=== PATIENT | female | born 1970 | race Caucasian/White ===

== ENCOUNTER 2019-04-10 17:21 | Emergency (ER) | payer OTHER ==
[~2019-04-10] VITALS: Ht 157.5 cm; Wt 77.1 kg
[2019-04-10 17:30] VITALS: BP 107/68
[2019-04-10] MEDS ORDERED: NACL 0.9% 1,000 ML IV ONE (19:05)
[2019-04-10 19:26] LABS: BASOPHILS % (AUTO) 0.6 % (0.0-2.0); EOSINOPHILS # (AUTO) 0.1 K/uL (0-0.4); EOSINOPHILS % (AUTO) 1.3 % (0.0-4.0); HEMATOCRIT 39.5 % (36-48); HEMOGLOBIN 13.1 g/dL (12.0-16.0); LYMPHOCYTES # (AUTO) 2.5 K/uL (2.5-16.5); LYMPHOCYTES % (AUTO) 38.1 % (20.5-51.1); MEAN CORPUSCULAR HEMOGLOBIN 28 pg (27-31); MEAN CORPUSCULAR HGB CONC 33 g/dL (33-37); MEAN CORPUSCULAR VOLUME 85.2 fL (80-94); MONOCYTES # (AUTO) 0.3 K/uL (0.8-1.0); MONOCYTES % (AUTO) 4.7 % (1.7-9.3); NEUTROPHILS # (AUTO) 3.7 K/uL (1.8-7.7); NEUTROPHILS % (AUTO) 55.3 % (42.2-75.2); PLATELET COUNT (AUTO) 287 K/uL (140-450); RED BLOOD CELL COUNT(AUTO) 4.63 MIL/uL (4.20-5.40); RED CELL DISTRIBUTION WIDTH 14.5 % (11.6-13.7); WHITE BLOOD COUNT (AUTO) 6.6 K/uL (4.8-10.8)
[2019-04-10 19:36] LABS: CARBON DIOXIDE 23.9 mmol/L (21-32); CREATININE 0.7 mg/dL (0.6-1.3); POTASSIUM 3.9 mmol/L (3.5-5.1)
[2019-04-10 19:43] LABS: ALBUMIN 3.2 g/dL (3.4-5.0); TOTAL BILIRUBIN 0.2 mg/dL (0.0-1.0)
[2019-04-10 21:20] VITALS: BP 114/72
== END 2019-04-10 21:20 | disposition home or self-care (01) ==
LOC: MED 17:21
DX: E11.9 Type 2 diabetes mellitus without complications (principal)
CPT/HCPCS: 36415; 80053; 81002; 81025; 85025; 93005; 96360; 99284; J7030

== ENCOUNTER 2019-05-29 16:05 | Emergency (ER) | payer OTHER ==
[~2019-05-29] VITALS: Ht 170.2 cm; Wt 73.0 kg
--- NOTE | 2019-05-29 16:14 | NUR ---
Patient ambulated to bed 2. RN evaluating patient at bedside.
[2019-05-29 16:18] VITALS: BP 161/89
--- NOTE | 2019-05-29 16:18 | NUR ---
Dr. Ponce evaluating patient at bedside.
--- NOTE | 2019-05-29 16:31 | NUR ---
BIB SELF FOR CHEST PAIN , NUMBNESS TO LEFT SIDE OF FACE AND ARM. 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 PT STATES SHE HAS BEEN ANXIOUS BECAUSE HER MOTHER WAS RECENTLY DIAGNOSED WITH CANCER AND SHE WAS DIAGNOSED W/ DM. RX METFORMIN . DENIES N/V/D; PT AWAKE, ALERT. LUNGS CLEAR BL; BEDSIDE MONITOR SHOWS ST 104[address]. PT DENIES ANY FEVER, SOB, OR COUGH AT THIS TIME; PATIENT STATES PAIN OF 6/10 AT THIS TIME; PATIENT POSITIONED FOR COMFORT; HOB ELEVATED; BEDRAILS UP X2; BED DOWN. ER MD AT BEDSIDE TO CHECK PT.
--- NOTE | 2019-05-29 16:37 | NUR ---
Called code brain.
--- NOTE | 2019-05-29 16:53 | NUR ---
Patient taken to CT scan via gurney by eneida, accompanied by RN.
[2019-05-29 16:58] LABS: BASOPHILS # (AUTO) 0.1 K/uL (0.00-0.22); BASOPHILS % (AUTO) 0.9 % (0.0-2.0); EOSINOPHILS # (AUTO) 0.1 K/uL (0-0.4); EOSINOPHILS % (AUTO) 1.1 % (0.0-4.0); HEMATOCRIT 41.3 % (36-48); HEMOGLOBIN 13.7 g/dL (12.0-16.0); LYMPHOCYTES # (AUTO) 2.2 K/uL (2.5-16.5); LYMPHOCYTES % (AUTO) 35.5 % (20.5-51.1); MEAN CORPUSCULAR HEMOGLOBIN 29 pg (27-31); MEAN CORPUSCULAR HGB CONC 33 g/dL (33-37); MEAN CORPUSCULAR VOLUME 86.9 fL (80-94); MONOCYTES # (AUTO) 0.3 K/uL (0.8-1.0); MONOCYTES % (AUTO) 5.1 % (1.7-9.3); NEUTROPHILS # (AUTO) 3.5 K/uL (1.8-7.7); NEUTROPHILS % (AUTO) 57.4 % (42.2-75.2); PLATELET COUNT (AUTO) 303 K/uL (140-450); RED BLOOD CELL COUNT(AUTO) 4.75 MIL/uL (4.20-5.40); RED CELL DISTRIBUTION WIDTH 13.9 % (11.6-13.7); WHITE BLOOD COUNT (AUTO) 6.1 K/uL (4.8-10.8)
--- NOTE | 2019-05-29 17:05 | NUR ---
PT BACK TO HER ROOM AFTER CT, ACCOMPANIED WITH CHIEF EMBALMER AND RN.
[2019-05-29 17:27] LABS: ALBUMIN 3.8 g/dL (3.4-5.0); ANION GAP 12.7 (8-16); CARBON DIOXIDE 27.9 mmol/L (21-32); CREATININE 0.6 mg/dL (0.6-1.3); POTASSIUM 3.6 mmol/L (3.5-5.1); TOTAL BILIRUBIN 0.4 mg/dL (0.0-1.0)
[2019-05-29 17:29] LABS: PROTHROMBIN TIME 9.5 secs (10.8-13.4)
--- NOTE | 2019-05-29 17:47 | NUR ---
PT STATED HER LEFT SIDED NUMBNESS GET RELIEVED BUT THE NUMBNESS IS STILL THERE.
--- NOTE | 2019-05-29 18:10 | NUR ---
DR. RAMIREZ AT BEDSIDE TO EXPLAIN CT REPORT AND tPA MEDS. PT AND PT'S DOES NOT WANT TO GET THIS MEDICATION IN OUR HOSPITAL. RISKS EXPLAINED. PT AND FAMILY STILL STATED THEY DOES NOT WANT TO DO IT HERE.
[2019-05-29 18:26] VITALS: BP 137/88
--- NOTE | 2019-05-29 18:26 | NUR ---
PT STATED NUMBNESS GETTING RELIEVED BEFORE TRANSFERRING. PT JUST FELT A LITTLE BIT NUMBNESS ON HER LEFT FACE.
--- NOTE | 2019-05-29 18:29 | NUR ---
PT LEFT WITH TRANSPORTATION TEAM. PT AWAKE, ALERT. NO SOB. VITALS STABLE UPON TRANSFERRING. WITH PT.
--- NOTE | 2019-05-29 18:45 | NUR ---
CALLED [phone] [facility], REPORT GIVEN TO JET JIANG. NOTIFIED PT WILL BE THERE IN 5-10 MINUTES.
== END 2019-05-29 18:29 | disposition short-term general hospital (02) ==
LOC: MED 16:05
DX: I63.9 Cerebral infarction, unspecified (principal); E11.9 Type 2 diabetes mellitus without complications; Z98.890 Other specified postprocedural states
CPT/HCPCS: 36415; 70450; 71045; 80053; 84484; 85025; 85610; 85730; 93005; 99291

== ENCOUNTER 2019-07-31 17:16 | Emergency (ER) | payer OTHER ==
[~2019-07-31] VITALS: Ht 162.6 cm; Wt 74.8 kg
--- NOTE | 2019-07-31 17:18 | NUR ---
PT BIBA TO ER BED 09
[2019-07-31 17:24] VITALS: BP 140/84
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
--- NOTE | 2019-07-31 17:30 | NUR ---
ER AT BEDSIDE
[2019-07-31 17:39] VITALS: BP 140/84
[2019-07-31] MEDS ORDERED: KETOROLAC 30 MG/ML VIAL IVP ONE (17:40)
[2019-07-31] MEDS ORDERED: LORazepam 2 MG/ML VIAL IVP ONE (17:40)
[2019-07-31 18:44] LABS: BASOPHILS % (AUTO) 0.6 % (0.0-2.0); EOSINOPHILS # (AUTO) 0.1 K/uL (0-0.4); EOSINOPHILS % (AUTO) 1.5 % (0.0-4.0); HEMATOCRIT 37.7 % (36-48); HEMOGLOBIN 12.1 g/dL (12.0-16.0); LYMPHOCYTES # (AUTO) 2.2 K/uL (2.5-16.5); LYMPHOCYTES % (AUTO) 30.8 % (20.5-51.1); MEAN CORPUSCULAR HEMOGLOBIN 28 pg (27-31); MEAN CORPUSCULAR HGB CONC 32 g/dL (33-37); MEAN CORPUSCULAR VOLUME 86.6 fL (80-94); MONOCYTES # (AUTO) 0.4 K/uL (0.8-1.0); MONOCYTES % (AUTO) 5.7 % (1.7-9.3); NEUTROPHILS # (AUTO) 4.3 K/uL (1.8-7.7); NEUTROPHILS % (AUTO) 61.4 % (42.2-75.2); PLATELET COUNT (AUTO) 346 K/uL (140-450); RED BLOOD CELL COUNT(AUTO) 4.35 MIL/uL (4.20-5.40); RED CELL DISTRIBUTION WIDTH 14.2 % (11.6-13.7); WHITE BLOOD COUNT (AUTO) 7.1 K/uL (4.8-10.8)
[2019-07-31 19:04] LABS: ANION GAP 13.3 (8-16); CARBON DIOXIDE 25.7 mmol/L (21-32); CREATININE 0.8 mg/dL (0.6-1.3)
[2019-07-31 19:09] LABS: ALBUMIN 3.5 g/dL (3.4-5.0); TOTAL BILIRUBIN 0.1 mg/dL (0.0-1.0)
[2019-07-31 19:13] LABS: PROTHROMBIN TIME 9.1 secs (10.8-13.4)
== END 2019-07-31 19:13 | disposition home or self-care (01) ==
LOC: MED 17:16
DX: R00.2 Palpitations (principal); F41.0 Panic disorder [episodic paroxysmal anxiety]; E11.9 Type 2 diabetes mellitus without complications; Z86.73 Personal history of transient ischemic attack (TIA), and cerebral infarction without residual deficits; V89.2XXA Person injured in unspecified motor-vehicle accident, traffic, initial encounter; Y93.89 Activity, other specified; Y92.89 Other specified places as the place of occurrence of the external cause; Y99.8 Other external cause status
CPT/HCPCS: 36415; 71045; 80053; 83880; 84484; 85025; 85610; 85730; 93005; 96374; 96375; 99284; J1885; J2060; Q0092

== ENCOUNTER 2021-02-09 17:49 | Inpatient (IN) | payer OTHER, SELFPAY ==
[~2021-02-09] VITALS: Ht 162.6 cm; Wt 73.9 kg
[2021-02-09 17:55] VITALS: BP 16/86
[2021-02-09] MEDS ORDERED: PANTOPRAZOLE 40 MG INJ VIAL IVP ONE (18:05)
[2021-02-09] MEDS ORDERED: MORPHINE SULFATE 2 MG/ML SYR IVP ONE (18:05)
[2021-02-09] MEDS ORDERED: NACL 0.9% 1,000 ML IV SCH (18:05)
[2021-02-09] MEDS ORDERED: ONDANSETRON 4 MG/2 ML VIAL IVP ONE (18:05)
--- NOTE | 2021-02-09 18:14 | NUR ---
PATIENT TAKEN TO ULTRASOUND VIA WHEELCHAIR
--- NOTE | 2021-02-09 19:25 | NUR ---
Report received from DEIDRE Kelley for continuation of care at this time.
--- NOTE | 2021-02-09 19:30 | NUR ---
REPORT GIVEN TO LOLA JIANG FOR CONTINUITY OF CARE
--- NOTE | 2021-02-09 19:34 | NUR ---
ERMD AT BEDSIDE FOR RE-EXAMINATION OF PATIENT
--- NOTE | 2021-02-09 19:34 | NUR ---
ERMD at bedside assessing patient.
[2021-02-09] MEDS ORDERED: NACL 0.9% 1,000 ML IV ONE (19:35)
[2021-02-09] MEDS ORDERED: PIPERACILLIN/TAZOBACTAM 3.375 GM in DEXTROSE 5% 50 ML IV ONE (19:35)
[2021-02-09] MEDS ORDERED: PIPERACILLIN/TAZOBACTAM 3.375 GM VIAL IV ONE (19:48)
[2021-02-09 19:49] LABS: APPEARANCE,URINE HAZY (CLEAR); BILIRUBIN,URINE NEGATIVE (NEGATIVE); BLOOD, URINE 1+ (NEGATIVE); COLOR,URINE YELLOW (YELLOW); LEUKOCYTE ESTERASE ,URINE NEGATIVE (NEGATIVE); NITRITE, URINE POSITIVE (NEGATIVE); PH,URINE 5.5 (5.0-9.0); UGLUCOSE 3+ (NEGATIVE)
[2021-02-09 19:50] LABS: BASOPHILS # (AUTO) 0.1 K/uL (0.00-0.22); EOSINOPHILS # (AUTO) 0.1 K/uL (0-0.4); HEMATOCRIT 36.6 % (36-48); HEMOGLOBIN 11.8 g/dL (12.0-16.0); LYMPHOCYTES # (AUTO) 1.8 K/uL (2.5-16.5); LYMPHOCYTES % (AUTO) 24.8 % (20.5-51.1); MEAN CORPUSCULAR HEMOGLOBIN 27 pg (27-31); MEAN CORPUSCULAR HGB CONC 32 g/dL (33-37); MEAN CORPUSCULAR VOLUME 82.3 fL (80-94); MONOCYTES # (AUTO) 0.3 K/uL (0.8-1.0); MONOCYTES % (AUTO) 4.7 % (1.7-9.3); NEUTROPHILS # (AUTO) 4.9 K/uL (1.8-7.7); NEUTROPHILS % (AUTO) 68.5 % (42.2-75.2); PLATELET COUNT (AUTO) 389 K/uL (140-450); RED BLOOD CELL COUNT(AUTO) 4.44 MIL/uL (4.20-5.40); WHITE BLOOD COUNT (AUTO) 7.1 K/uL (4.8-10.8)
--- NOTE | 2021-02-09 19:55 | NUR ---
Patient laying in bed locked in lowest position, breathing even and unlabored. Patient denies pain, n/v at this time. NAD, will continue to monitor. at bedside.
--- NOTE | 2021-02-09 19:55 | NUR ---
Bowel sounds present throughout all quadrants. Abdomen soft and non-tender.
[2021-02-09 20:05] LABS: RBC,URINE 0-5 /HPF (0-5); WBC,URINE 0-5 /HPF (0-5)
[2021-02-09 20:12] LABS: ALBUMIN 3.7 g/dL (3.4-5.0); ANION GAP 12.4 (8-16); CARBON DIOXIDE 24.3 mmol/L (21-32); CREATININE 0.6 mg/dL (0.6-1.3); POTASSIUM 3.7 mmol/L (3.5-5.1); TOTAL BILIRUBIN 0.4 mg/dL (0.0-1.0)
[2021-02-09] MEDS ORDERED: MAGNESIUM OXIDE 400 MG TAB PO PRN (20:40)
[2021-02-09] MEDS ORDERED: MAG SULF 2000 MG/WATER PREMIX 50 ML IV PRN (20:40)
[2021-02-09] MEDS ORDERED: MORPHINE SULFATE 4 MG/ML SYR IVP PRN (20:40)
[2021-02-09] MEDS ORDERED: ACETAMINOPHEN 325 MG TAB PO PRN (20:40)
[2021-02-09] MEDS ORDERED: HYDROcodone/APAP 5/325 MG 1 TAB TAB PO PRN (20:40)
[2021-02-09] MEDS ORDERED: ONDANSETRON 4 MG/2 ML VIAL IVP PRN (20:40)
[2021-02-09] MEDS ORDERED: KCL 20 MEQ/WATER INJ PREMIX 200 ML IV PRN (20:40)
[2021-02-09] MEDS ORDERED: POTASSIUM CHLORIDE 10 MEQ TABER PO PRN (20:40)
[2021-02-09] MEDS ORDERED: ASPI-1822 PO (21:24)
[2021-02-09] MEDS ORDERED: METF1000 PO (21:28)
[2021-02-09] MEDS ORDERED: ATOR40TA PO (21:28)
--- NOTE | 2021-02-09 21:31 | NUR ---
Report called to DEIDRE Hoover for transfer of care.
--- NOTE | 2021-02-09 21:40 | NUR ---
Patient will be admitted to care of Dr. Espinoza. Admited to Med/Surg. Will go to room 104B. Belongings list completed. Report to DEIDRE Hoover.
[2021-02-09 21:45] VITALS: BP 131/81
[2021-02-09] MEDS ORDERED: INSU100I7 SQ (21:45)
--- NOTE | 2021-02-09 21:45 | NUR ---
ADMITTED 50/F, AAOX4, ON ROOM AIR, DENIES PAIN, AMBULATORY, SKIN INTACT, V/S TAKEN, MRSA SWAB TAKEN, ORIENTED TO ROOM, AT BEDSIDE, ANSWERED ALL QUESTIONS, SAFETY MEASURES IN PLACE, WILL MONITOR, CALL LIGHT WITHIN REACH.
[2021-02-09] MEDS ORDERED: INSU100S5 IJ (21:52)
[2021-02-09] MEDS: NACL 0.9% 1,000 ML IV SCH (22:04)
--- NOTE | 2021-02-09 22:12 | NUR ---
PATIENT REFUSED HEPARIN SQ. EXPLAINED THE RISKS AND BENEFITS, STILL REFUSED, WILL MONITOR, KEPT COMFORTABLE, CALL LIGHT WITHIN REACH.
--- NOTE | 2021-02-10 | NUR ---
PATIENT ASLEEP, NOTED CHEST RISE, CALL LIGHT WITHIN REACH.
[2021-02-10 04:00] VITALS: BP 126/74
--- NOTE | 2021-02-10 04:00 | NUR ---
V/S TAKEN, WNL, KEPT COMFORTABLE, CALL LIGHT WITHIN REACH.
[2021-02-10 05:22] LABS: BASOPHILS % (AUTO) 0.5 % (0.0-2.0); EOSINOPHILS # (AUTO) 0.2 K/uL (0-0.4); EOSINOPHILS % (AUTO) 2.2 % (0.0-4.0); HEMATOCRIT 32.8 % (36-48); HEMOGLOBIN 10.7 g/dL (12.0-16.0); LYMPHOCYTES # (AUTO) 2.4 K/uL (2.5-16.5); LYMPHOCYTES % (AUTO) 27.4 % (20.5-51.1); MEAN CORPUSCULAR HEMOGLOBIN 27 pg (27-31); MEAN CORPUSCULAR HGB CONC 33 g/dL (33-37); MEAN CORPUSCULAR VOLUME 81.8 fL (80-94); MONOCYTES # (AUTO) 0.4 K/uL (0.8-1.0); MONOCYTES % (AUTO) 4.6 % (1.7-9.3); NEUTROPHILS # (AUTO) 5.7 K/uL (1.8-7.7); NEUTROPHILS % (AUTO) 65.3 % (42.2-75.2); PLATELET COUNT (AUTO) 333 K/uL (140-450); RED BLOOD CELL COUNT(AUTO) 4.01 MIL/uL (4.20-5.40); RED CELL DISTRIBUTION WIDTH 14.9 % (11.6-13.7); WHITE BLOOD COUNT (AUTO) 8.7 K/uL (4.8-10.8)
[2021-02-10 05:26] LABS: ALBUMIN 3.1 g/dL (3.4-5.0); ANION GAP 12.1 (8-16); CARBON DIOXIDE 23.3 mmol/L (21-32); CREATININE 0.7 mg/dL (0.6-1.3); MAGNESIUM 1.7 mg/dL (1.8-2.4); POTASSIUM 4.4 mmol/L (3.5-5.1); TOTAL BILIRUBIN 0.4 mg/dL (0.0-1.0)
--- NOTE | 2021-02-10 07:02 | NUR ---
PATIENT STABLE, NO DISTRESS, DENIES PAIN, KEPT COMFORTABLE, ALL NEEDS ATTENDED, CALL LIGHT WITHIN REACH.
--- NOTE | 2021-02-10 07:14 | NUR ---
PT STABLE, BEDSIDE ENDORSEMENT GIVEN TO AM RN FOR CONTINUITY OF CARE.
--- NOTE | 2021-02-10 07:15 | NUR ---
PT ENDORSED BY SITE SUPERVISING TECHNICAL OPERATOR FOR CONTINUITY OF CARE. POC DISCUSSED, PT IS RESTING COMFORTABLE IN BED ON ROOM AIR WITH CHEST RISING AND FALLING EVEN AND UNLABORED. PT IS SCHEDULED FOR SURGERY AT [address] GUNN. ALL SAFETY MEASURES IN PLACE, CALL LIGHT WITHIN REACH. WILL CONTINUE TO MONITOR.
[2021-02-10 08:00] VITALS: BP 112/71
--- NOTE | 2021-02-10 08:10 | NUR ---
SOMMER HEPARIN NON ADMINISTERED DO TO SURGERY TODAY AT 1430.
--- NOTE | 2021-02-10 08:57 | NUR ---
PATIENT HAS BEEN SCREENED AND CATEGORIZED LOW NUTRITION RISK. PATIENT WILL BE SEEN WITHIN 7 DAYS OF ADMISSION. 02/16/21 [facility] REFERRAL RECEIVED FOR NAUSEA AND VOMITING OVER 3 DAYS NOT APPLICABLE, ONLY 1 DAY ACCORDING TO ER NOTE. YUNG TAMEZ RD
[2021-02-10] MEDS: NACL 0.9% 1,000 ML IV SCH ×2 (09:10→21:40)
--- NOTE | 2021-02-10 09:21 | NUR ---
DR. VERDUZCO CAME TO RECEIVE SBAR ON PT BEFORE SURGERY. DR ORDERED 4 UNITS OF INSULIN ONCE FOR A BLOOD GLUCOSE OF 244 AT AM LABS. ALSO ORDERED STAT FRANKO. RECHECKING BLOOD GLUCOSE AT 1200. MAGNESIUM REPLACED WITH PRN ORDER. NEW IV BAG HUNG. PT IV INTACT AND PATENT. PT IS CHANGED INTO HOSPITAL GOWN, NO JEWELRY ON. PT STATED DR. GUNN SPOKE TO HER ABOUT THE SURGERY AND SHE HAS NO CONCERNS. PT SIGNED CONSENT. ALL SAFETY MEASURES IN PLACE, CALL LIGHT WITHIN REACH. WILL CONTINUE TO MONITOR.
--- NOTE | 2021-02-10 09:38 | NUR ---
DR. GUNN HAS SPOKEN WITH THE PT AND PT HAS NO QUESTIONS.. PT SIGNED CONSENT, DR. GUNN NOTIFIED OF NEEDING HIS SIGNATURE. ALL SAFETY MEASURES IN PLACE, CALL LIGHT WITHIN REACH. WILL CONTINUE TO MONITOR.
[2021-02-10] MEDS ORDERED: INSULIN LISPRO 100 UNITS/ML VIAL SUBQ SCH (10:00)
--- NOTE | 2021-02-10 11:18 | NUR ---
FRANKO IS NEGATIVE. PT DENIES PAIN AT THIS TIME. ALL SAFETY MEASURES IN PLACE, CALL LIGHT WITHIN REACH. WILL CONTINUE TO MONITOR.
--- NOTE | 2021-02-10 12:17 | NUR ---
BLOOD GLUCOSE CHECK IS 190, TRENDING DOWN. DR. VERDUZCO NOTIFIED AND NO NEW ORDERS. PT IS RESTING COMFORTABLE WITH NO SIGNS OF ACUTE DISTRESS. WILL CONTINUE TO MONITOR.
[2021-02-10] MEDS ORDERED: DEXTROSE 50% 50 ML SYR IVP PRN (12:20)
[2021-02-10 13:12] LABS: PROTHROMBIN TIME 9.2 secs (10.8-13.4)
[2021-02-10] MEDS ORDERED: fentaNYL citrate 0.05 MG/ML VIAL ONE (13:53)
--- NOTE | 2021-02-10 14:07 | NUR ---
ROUNDED ON PT, PT IS RESTING WITH FAMILY MEMBER AT BEDSIDE. NO COMPLAINTS AT THIS TIME. ALL SAFETY MEASURES IN PLACE, CALL LIGHT WITHIN REACH. WILL CONTINUE TO MONITOR.
--- NOTE | 2021-02-10 14:30 | NUR ---
SPOKE WITH BRITTNEY FROM OR, DR. GUNN WILL BE AT THE HOSPITAL AROUND [phone].
--- NOTE | 2021-02-10 15:55 | NUR ---
PT TAKEN TO THE OR IN STABLE CONDITION, ALL BELONGINGS AT BEDSIDE. PT HAND OFF GIVEN TO OR NURSE. VITAL SIGNS WNL.
[2021-02-10] MEDS ORDERED: PIPERACILLIN/TAZOBACTAM 3.375 GM VIAL IV ONE (16:03)
[2021-02-10] MEDS ORDERED: BUPIVACAINE-MPF/EPI 0.25% 30 ML VIAL INJ ONE (16:07)
[2021-02-10] MEDS ORDERED: LIDOCAINE 1% 500 MG/50 ML VIAL ONE (16:07)
[2021-02-10] MEDS ORDERED: SEVOFLURANE 250 ML BTL INH ONE (16:12)
[2021-02-10] MEDS ORDERED: MEPERIDINE 25 MG/ML SYR ONE (16:24)
[2021-02-10] MEDS ORDERED: LIDOCAINE MPF 2% 100 MG/5 ML VIAL INJ ONE (17:21)
[2021-02-10] MEDS ORDERED: KETOROLAC 30 MG/ML VIAL ONE (17:21)
[2021-02-10] MEDS ORDERED: GLYCOPYRROLATE 0.2 MG/ML VIAL ONE (17:21)
[2021-02-10] MEDS ORDERED: NEOSTIGMINE 1:1000 10 MG/10 ML VIAL ONE (17:21)
[2021-02-10] MEDS ORDERED: METOCLOPRAMIDE 10 MG/2 ML INJ VIAL ONE (17:22)
[2021-02-10] MEDS ORDERED: ETOMIDATE 20 MG/10 ML VIAL IVP ONE (17:22)
[2021-02-10] MEDS ORDERED: PROPOFOL 200 MG/20 ML VIAL IV ONE (17:22)
[2021-02-10] MEDS ORDERED: SUCCINYLCHOLINE CHLORIDE 200 MG/10 ML VIAL IVP ONE (17:22)
[2021-02-10] MEDS ORDERED: ONDANSETRON 4 MG/2 ML VIAL ONE (17:22)
[2021-02-10] MEDS ORDERED: ROCURONIUM 50 MG/5 ML VIAL IV ONE (17:23)
[2021-02-10] MEDS ORDERED: BLOOD GLUCOSE MONITORING 1 DEV DEV FS SCH (18:05)
[2021-02-10] MEDS ORDERED: MEPERIDINE 25 MG/ML SYR IVP PRN (18:05)
[2021-02-10] MEDS: LACTATED RINGERS 1,000 ML IV SCH (18:05)
[2021-02-10] MEDS ORDERED: ONDANSETRON 4 MG/2 ML VIAL IVP PRN (18:05)
[2021-02-10] MEDS ORDERED: fentaNYL citrate 0.05 MG/ML VIAL IVP PRN (18:05)
[2021-02-10] MEDS ORDERED: diphenhydrAMINE 50 MG/ML VIAL IVP PRN (18:05)
--- NOTE | 2021-02-10 18:30 | NUR ---
PT RETURNED FROM OR IN STABLE CONDITION. VITAL SIGNS 121/76, 77, 98.4, 16 SPO2 94%, PAIN 3/10. PT IS ALERT AND ORIENTED; HAS 4 INCISION IN ABD THAT ARE INTACT. ALL SAFETY MEASURES IN PLACE, CALL LIGHT WITHIN REACH. WILL CONTINUE TO MONITOR.
--- NOTE | 2021-02-10 18:57 | NUR ---
RX AND F/U APPOINTMENT WITH DR. GUNN IS IN CHART.
--- NOTE | 2021-02-10 19:16 | NUR ---
REPORT GIVEN TO NURSE CLINICIAN, PT IS IN STABLE CONDITION.
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
[2021-02-10 20:00] VITALS: BP 117/67
[2021-02-10] MEDS: BLOOD GLUCOSE MONITORING 1 DEV DEV FS SCH ×2 (20:30→21:00)
--- NOTE | 2021-02-10 20:30 | NUR ---
PATIENT IS AWAKE, ON SEMI FOWLERS POSITION, AAOX4, HUMALOG 4 UNITS GIVEN FOR BS OF 209, TOLERATED WELL, WILL MONITOR, CALL LIGHT WITHIN REACH. FAMILY AT BEDSIDE.
[2021-02-10] MEDS: INSULIN LISPRO SLIDING SCALE 100 UNITS/ML VIAL SUBQ PRN (20:35)
--- NOTE | 2021-02-10 20:48 | NUR ---
PT REFUSED HEPARIN, SHE SAID "I WILL WALK A LITTLE LATER". EXPLAINED RISKS AND BENEFITS, STILL REFUSED.
--- NOTE | 2021-02-10 21:50 | NUR ---
BLOOD SUGAR CHECKED AT 20:30, 209. HUMALOG 4 U GIVEN PER SLIDING SCALE ORDERED, IVF CONTINUE INFUSING, CALL LIGHT WITHIN REACH.
--- NOTE | 2021-02-11 01:05 | NUR ---
PUT ABDOMINAL BINDER AND ASSISTED PT IN GETTING OUT OF BED, PT TOLERATED THE PAIN AND WAS ABLE TO AMBULATE W/ VERY LITTLE TO NO ASSIST IN WALKING. PATIENT WALKED A FEW MINUTES MORE INSIDE THE ROOM BEFORE GOING BACK TO BED, WILL MONITOR AND PLACED CALL LIGHT WITHIN PT REACH.
[2021-02-11] MEDS: LACTATED RINGERS 1,000 ML IV SCH ×2 (02:25→10:45)
[2021-02-11] MEDS: NACL 0.9% 1,000 ML IV SCH (02:58)
--- NOTE | 2021-02-11 02:58 | NUR ---
IVF CHANGED, IV SITE INTACT, PT ASLEEP, NOTED CHEST RISE, CALL LIGHT WITHIN REACH.
[2021-02-11 04:00] VITALS: BP 144/77
--- NOTE | 2021-02-11 04:00 | NUR ---
V/S TAKEN, WNL, KEPT COMFORTABLE, CALL LIGHT WITHIN REACH.
[2021-02-11 06:25] LABS: BASOPHILS % (AUTO) 0.5 % (0.0-2.0); EOSINOPHILS % (AUTO) 0.5 % (0.0-4.0); HEMATOCRIT 32.7 % (36-48); HEMOGLOBIN 10.5 g/dL (12.0-16.0); LYMPHOCYTES % (AUTO) 25.3 % (20.5-51.1); MEAN CORPUSCULAR HEMOGLOBIN 27 pg (27-31); MEAN CORPUSCULAR HGB CONC 32 g/dL (33-37); MEAN CORPUSCULAR VOLUME 82.3 fL (80-94); MONOCYTES # (AUTO) 0.4 K/uL (0.8-1.0); MONOCYTES % (AUTO) 4.7 % (1.7-9.3); NEUTROPHILS # (AUTO) 5.4 K/uL (1.8-7.7); PLATELET COUNT (AUTO) 357 K/uL (140-450); RED BLOOD CELL COUNT(AUTO) 3.97 MIL/uL (4.20-5.40); RED CELL DISTRIBUTION WIDTH 15.1 % (11.6-13.7); WHITE BLOOD COUNT (AUTO) 7.8 K/uL (4.8-10.8)
[2021-02-11] MEDS: BLOOD GLUCOSE MONITORING 1 DEV DEV FS SCH ×2 (06:31→11:58)
[2021-02-11] MEDS: INSULIN LISPRO SLIDING SCALE 100 UNITS/ML VIAL SUBQ PRN ×2 (06:33→12:00)
[2021-02-11 06:36] LABS: ALBUMIN 2.8 g/dL (3.4-5.0); ANION GAP 13.9 (8-16); CARBON DIOXIDE 22.2 mmol/L (21-32); CREATININE 0.6 mg/dL (0.6-1.3); MAGNESIUM 1.8 mg/dL (1.8-2.4); POTASSIUM 4.1 mmol/L (3.5-5.1); TOTAL BILIRUBIN 0.3 mg/dL (0.0-1.0)
--- NOTE | 2021-02-11 06:54 | NUR ---
PATIENT STABLE, NO DISTRESS, ALL NEEDS ATTENDED, KEPT COMFORTABLE, SAFETY MEASURES IN PLACE, CALL LIGHT WITHIN REACH.
--- NOTE | 2021-02-11 07:15 | NUR ---
Received report from pm nurse Sneha. Pt resting in bed, awake, no signs of distress, respirations even & nonlabored. Call light within reach. Left AC IV intact with ongoing NS @ 80ml/hr.
[2021-02-11 08:00] VITALS: BP 117/73
--- NOTE | 2021-02-11 08:40 | NUR ---
Patient refused heparin. RN educated on indication for med, and risk of blood clots after surgery. Patient verbalized understanding, continue to refuse heparin. RN instructed patient to ambulate around room to prevent clots and promote bowel movement. RN also provided incentive spirometer and instructed on proper use. Patient verbalized understanding on instructions provided and able to return demonstrate proper use of IS.
--- NOTE | 2021-02-11 08:51 | NUR ---
Patient ambulating in hallway wearing non-skid socks and mask. Gait steady. No signs of distress.
[2021-02-11] MEDS ORDERED: INSU100S5 SQ (13:39)
[2021-02-11] MEDS ORDERED: ACET-9525 PO (13:39)
[2021-02-11] MEDS ORDERED: DOCU-299 PO (13:41)
--- NOTE | 2021-02-11 14:00 | NUR ---
Patient resting in bed, states she has been passing gas, no c/o nausea, no episode of vomiting. Abd incisions intact.
--- NOTE | 2021-02-11 15:00 | NUR ---
Written and verbal discharge instructions provided to patient: - Prescription for Duff given. Educated on side effect of constipation and sedation. - Med reconciliation - F/u appt with PCP and surgeon (Dr. Carrillo's business card provided) - Do not rub incisions or wash with soap, only water and gently pat dry Patient verbalized understanding and able to repeat back instructions. Left AC IV discontinued, cannula intact. Site covered with dry gauze and tape. Patient's at bedside states he will transport patient home.
--- NOTE | 2021-02-11 15:30 | NUR ---
Patient discharged at this time. Patient declines wheelchair, states she prefers to walk out. Patient with steady gait, ambulated off unit with . All belongings with patient upon departure.
--- NOTE | 2021-02-12 04:42 | NUR ---
LATE ENTRY- NORMAL SALINE 0.9% DISCONTINUED AT 2230
--- NOTE | 2021-02-12 04:42 | NUR ---
LATE ENTRY- NORMAL SALINE 0.9% DISCONTINUED AT 2030
== END 2021-02-11 15:30 | disposition home or self-care (01) | DRG 263 ==
LOC: MED 17:49 → MTU 20:43
PROVIDERS: ADMIT Internal Medicine; ATTEND Internal Medicine
PROC: BF101ZZ Fluoroscopy of Bile Ducts using Low Osmolar Contrast (ICD-10-PCS; 2021-02-10)
PROC: 0FT44ZZ Resection of Gallbladder, Percutaneous Endoscopic Approach (ICD-10-PCS; principal; 2021-02-10 14:30)
DX: K80.12 Calculus of gallbladder with acute and chronic cholecystitis without obstruction (principal); E11.9 Type 2 diabetes mellitus without complications; Z86.73 Personal history of transient ischemic attack (TIA), and cerebral infarction without residual deficits; K82.8 Other specified diseases of gallbladder; R79.89 Other specified abnormal findings of blood chemistry; Z20.822 Contact with and (suspected) exposure to COVID-19; Z79.4 Long term (current) use of insulin; Z98.891 History of uterine scar from previous surgery
CPT/HCPCS: 36415; 76705; 80053; 81001; 82150; 82374; 82948; 83605; 83690; 83735; 84484; 84703; 85025; 85610; 86886; 86900; 86901; 87040; 87081; 87086; 88304; 93005; 93880; 96365; 96375; 99285; C1887; C9113; J0330; J1644; J1815; J1885; J2001; J2175; J2270; J2405; J2543; J2704; J2710; J2765; J3010; J3490; J7030; J7120